=== PATIENT | female | born 1995 | race Caucasian/White ===

== ENCOUNTER 2018-12-14 11:47 | Outpatient (CLI) | payer MEDICAID, SELFPAY | END 2018-12-14 12:07 | PROVIDERS: PCP Family Medicine; Visit Provider Nurse Practitioner Women's Health | DX: R69 Illness, unspecified (principal) | CPT/HCPCS: 36415; 80076; 87522 ==

== ENCOUNTER 2019-02-02 13:05 | Outpatient (REF) | payer MEDICAID, SELFPAY ==
--- NOTE | 2019-02-02 11:30 | PAPFT_PTH ---
PATIENT: Raysa West LOC: [facility] U#:[id number] AGE/SX: 23/F ROOM: RE02/02/[address]: Nell Carrasquillo RN : 1995 BED: DIS: 02/02/2019 SPEC #: [id number] RECD: 02/02/19 13:07 STATUS: ESSIE REBin #: [id number] JEREMIAH: 02/02/19 11:[address]: Nell Carrasquillo DEPT: [facility] Cytology RECD BY: Yesenia Valdez Tissues: 1 - CX/ENDOCX FOR PAP SMEARS Procedures: PAP THIN PREP/UVM Screening Comments: [id number]
[2019-02-02 13:46] LABS: *AMPHETAMINES SCREEN URINE Negative (Negative); *BARBITURATES SCREEN URINE Negative (Negative); *BENZODIAZEPINES SCREEN URINE Negative (Negative); Cannabinoids THC POSITIVE (Negative); Cocaine Screen,Urine Negative (Negative); METHADONE URINE SCREEN POSITIVE (Negative); OPIATES URINE SCREEN Negative (Negative)
[2019-02-02 13:48] LABS: Tricyclic Antidepressants Negative (Negative)
[2019-02-03 15:19] LABS: Chlamydia Result Negative; GC Result Negative; Specimen Description CERVIX
[2019-02-04 23:29] LABS: Buprenorphine Negative; Norbuprenorphine Negative
== END 2019-02-02 13:25 ==
LOC: LBN 13:05
PROVIDERS: Visit Provider Advanced Practice Midwife
DX: Z34.91 Encounter for supervision of normal pregnancy, unspecified, first trimester (principal); Z11.3 Encounter for screening for infections with a predominantly sexual mode of transmission; Z12.4 Encounter for screening for malignant neoplasm of cervix
CPT/HCPCS: 80307; 87491; 87591; 88142; 87086

== ENCOUNTER 2019-03-14 01:14 | Outpatient (CLI) | payer MEDICAID, SELFPAY ==
--- NOTE | 2019-03-14 07:44 | DI.US_ITS ---
EXAM: US OB 2-3 TRIMESTER CLINICAL HISTORY: SURVEY,Z34.90 TECHNIQUE: OB ultrasound was performed according to the usual protocol. FINDINGS: Please refer to the OB ultrasound worksheet for complete results of this examination
== END 2019-03-14 01:34 ==
PROVIDERS: PCP Nurse Practitioner Adult Health; Visit Provider Advanced Practice Midwife
DX: Z34.92 Encounter for supervision of normal pregnancy, unspecified, second trimester (principal)
CPT/HCPCS: 76805

== ENCOUNTER 2019-04-17 14:31 | Outpatient (REF) | payer MEDICAID, SELFPAY ==
[2019-04-17 15:34] LABS: *AMPHETAMINES SCREEN URINE Negative (Negative); *BARBITURATES SCREEN URINE Negative (Negative); *BENZODIAZEPINES SCREEN URINE Negative (Negative); Cannabinoids THC Negative (Negative); Cocaine Screen,Urine Negative (Negative); METHADONE URINE SCREEN POSITIVE (Negative); OPIATES URINE SCREEN Negative (Negative)
[2019-04-17 15:35] LABS: Tricyclic Antidepressants Negative (Negative)
[2019-04-24 11:49] LABS: Buprenorphine Negative; Norbuprenorphine Negative
== END 2019-04-17 14:51 ==
LOC: LBN 14:31
PROVIDERS: PCP Nurse Practitioner Adult Health; Visit Provider Advanced Practice Midwife
DX: Z34.92 Encounter for supervision of normal pregnancy, unspecified, second trimester (principal)
CPT/HCPCS: 80307

== ENCOUNTER 2019-05-15 08:04 | Outpatient (CLI) | payer MEDICAID, SELFPAY ==
[2019-05-15 08:47] LABS: Abs Immature Grans 0.15 k/cumm (0.0-0.09); Absolute Basophil Count 0.03 k/cumm (0.0-0.2); Absolute Eosinophil Count 0.13 k/cumm (0.0-0.7); Absolute Lymphocyte Count 1.46 k/cumm (1.2-3.4); Absolute Monocyte Count 1.34 k/cumm (0.11-0.7); Basophils % 0.2; Eosinophils % 0.9; HGB 12.1 g/dL (12.0-15.5); Immature Grans % 1.1; Lymphocytes % 10.5; Mean Corp. HGB Concentration 33.6 g/dL (32.0-36.0); Mean Corpuscular Hemoglobin 30.6 pg (27.0-33.0); Mean Corpuscular Volume 91.1 fL (80-95); Mean Platelet Volume 10.9 fL (8.0-11.0); Monocytes % 9.6; Neutrophils % 77.7; Platelet Count 261 x1000/uL (130-400); RBC 3.95 m/cumm (4.00-5.20); White Blood Cell Count 13.92 k/cumm (4.4-10.8)
[2019-05-15 08:48] LABS: Absolute Neutrophil Count 10.82 k/cumm (1.2-6.7)
[2019-05-15 08:59] LABS: Glucose,1 Hr (Glucola) 102 mg/dL (80-140)
[2019-05-15 09:35] LABS: TSH (W/Ref FT4) 1.43 uIU/mL (0.36-3.74)
[2019-05-16 10:24] LABS: Rubella IgG Ab (UVM) Positive (See Note); Varicella IgG Antibody Negative (See Note)
[2019-05-16 11:10] LABS: Hepatitis B Surface Ag Negative (Negative)
[2019-05-16 13:15] LABS: Hepatitis C Ab w Rflx HCV PCR Reactive (Negative)
[2019-05-16 13:32] LABS: HIV-1/2 Ag & Ab Screen Negative (Negative)
[2019-05-16 16:04] LABS: Syphilis Total Ab w/Reflex Nonreactive (Nonreactive)
== END 2019-05-15 08:24 ==
PROVIDERS: Advanced Practice Midwife; PCP Nurse Practitioner Adult Health; Visit Provider Advanced Practice Midwife
DX: Z34.90 Encounter for supervision of normal pregnancy, unspecified, unspecified trimester (principal); Z11.4 Encounter for screening for human immunodeficiency virus [HIV]; Z11.59 Encounter for screening for other viral diseases; Z01.84 Encounter for antibody response examination
CPT/HCPCS: 82950; 86787; 86803; 86850; 86900; 86901; 87340; 87389; 84443; 85025; 86762; 86780; 87522

== ENCOUNTER 2019-05-15 10:59 | Outpatient (REF) | payer MEDICAID, SELFPAY ==
[2019-05-15 14:01] LABS: *AMPHETAMINES SCREEN URINE Negative (Negative); *BARBITURATES SCREEN URINE Negative (Negative); *BENZODIAZEPINES SCREEN URINE Negative (Negative); Cannabinoids THC Negative (Negative); Cocaine Screen,Urine Negative (Negative); METHADONE URINE SCREEN POSITIVE (Negative); OPIATES URINE SCREEN Negative (Negative)
[2019-05-15 14:16] LABS: Tricyclic Antidepressants Negative (Negative)
[2019-05-19 16:02] LABS: Buprenorphine Negative; Norbuprenorphine Negative
== END 2019-05-15 11:19 ==
LOC: LBN 10:59
PROVIDERS: PCP Nurse Practitioner Adult Health; Visit Provider Advanced Practice Midwife
DX: Z34.92 Encounter for supervision of normal pregnancy, unspecified, second trimester (principal)
CPT/HCPCS: 80307

== ENCOUNTER 2019-07-03 09:21 | Outpatient (CLI) | payer MEDICAID, SELFPAY ==
[2019-07-03 10:50] LABS: ALT 24 U/L (14-59); AST 18 U/L (15-37); Albumin 2.3 g/dL (3.4-5.0); Alkaline Phosphatase 182 U/L (46-116); Bilirubin, Total 0.2 mg/dL (0.2-1.0); Total Protein 6.2 g/dL (6.4-8.2)
[2019-07-03 11:06] LABS: Bilirubin, Direct 0.09 mg/dL (0.00-0.20)
[2019-07-03 12:41] LABS: *AMPHETAMINES SCREEN URINE Negative (Negative); *BARBITURATES SCREEN URINE Negative (Negative); *BENZODIAZEPINES SCREEN URINE Negative (Negative); Cannabinoids THC Negative (Negative); Cocaine Screen,Urine Negative (Negative); METHADONE URINE SCREEN POSITIVE (Negative); OPIATES URINE SCREEN Negative (Negative)
[2019-07-03 12:43] LABS: Tricyclic Antidepressants Negative (Negative)
[2019-07-06 10:14] LABS: Buprenorphine Negative; Norbuprenorphine Negative
== END 2019-07-03 09:41 ==
PROVIDERS: PCP Nurse Practitioner Adult Health; Visit Provider Advanced Practice Midwife
DX: B19.20 Unspecified viral hepatitis C without hepatic coma (principal); F11.11 Opioid abuse, in remission; Z34.93 Encounter for supervision of normal pregnancy, unspecified, third trimester
CPT/HCPCS: 36415; 80076; 80307

== ENCOUNTER 2019-08-03 13:44 | Outpatient (REF) | payer MEDICAID, SELFPAY ==
[2019-08-03 14:34] LABS: *AMPHETAMINES SCREEN URINE Negative (Negative); *BARBITURATES SCREEN URINE Negative (Negative); *BENZODIAZEPINES SCREEN URINE Negative (Negative); Cannabinoids THC Negative (Negative); Cocaine Screen,Urine Negative (Negative); METHADONE URINE SCREEN POSITIVE (Negative); OPIATES URINE SCREEN Negative (Negative)
[2019-08-03 14:37] LABS: Tricyclic Antidepressants Negative (Negative)
[2019-08-09 10:27] LABS: Buprenorphine Negative; Norbuprenorphine Negative
== END 2019-08-03 14:04 ==
LOC: LBN 13:44
PROVIDERS: PCP Nurse Practitioner Adult Health; Visit Provider Advanced Practice Midwife
DX: Z34.93 Encounter for supervision of normal pregnancy, unspecified, third trimester (principal); Z36.85 Encounter for antenatal screening for Streptococcus B; F11.11 Opioid abuse, in remission
CPT/HCPCS: 80307; 87081

== ENCOUNTER 2019-08-10 09:55 | Outpatient (REF) | payer MEDICAID, SELFPAY ==
[2019-08-10 10:52] LABS: *AMPHETAMINES SCREEN URINE Negative (Negative); *BARBITURATES SCREEN URINE Negative (Negative); *BENZODIAZEPINES SCREEN URINE Negative (Negative); Cannabinoids THC Negative (Negative); Cocaine Screen,Urine Negative (Negative); METHADONE URINE SCREEN POSITIVE (Negative); OPIATES URINE SCREEN Negative (Negative)
[2019-08-10 11:24] LABS: Tricyclic Antidepressants Negative (Negative)
== END 2019-08-10 10:15 ==
LOC: LBN 09:55
PROVIDERS: PCP Nurse Practitioner Adult Health; Visit Provider Advanced Practice Midwife
DX: F11.11 Opioid abuse, in remission (principal)
CPT/HCPCS: 80307

== ENCOUNTER 2019-08-11 13:35 | Inpatient (IN) | payer MEDICAID, SELFPAY ==
--- NOTE | 2019-08-11 17:37 | W.PM.PROGNOT ---
Date of Service Date of service: 08/11/19 Time of Service: 17:37 Assessment and Plan Assessment and plan (1) : Status: Acute Assessment and plan: The patient is a 24-year-old 3 para 2 who presented to OB with regular uterine contractions. She denies any leakage of fluid, bleeding, reports the baby's been active for her. She has a history of a precipitous delivery when she was 13 years old of a term infant. She then had a section done for a herpes outbreak. She was carefully examined by the real estate services coordinator on-call and no evidence of an outbreak was visible. The patient does have hepatitis C and therefore we want to minimize obstetric interventions. She currently is a category 1 strip with a baseline 120s good accelerations up to 140s 150s with mild contractions every few minutes. The patient will be monitored for a few hours to see if she is making cervical change. If she does not make cervical change and if she is not active labor she will then be sent home with the instructions to call immediately if she has increasing and more intense contractions. Also she ruptured membranes, has any bleeding, leakage of fluid or any other problems. I will also check an HIV, will check a rapid HIV because if she is positive there is increased risk of transmission of the hepatitis C to the baby. I told her in that case I would recommend a section. If the HIV test is negative, and if she is not active labor she will then be discharged home with careful instructions and follow-up. I did explain to her the risk of vaginal after including risk of rupture of the uterus and , impairment, maternal and impairment as well. If there is rupture of the uterus most times the uterine scar can be repaired but there is always a chance that hysterectomy would be required. The patient has been extensively counseled throughout the and I feel she is a good understanding of the risk and goals of the vaginal after .
[2019-08-11 18:08] LABS: HIV 1/2 Ab Rapid Negative (Negative)
[2019-08-11] MEDS: Normal Saline Flush 10 ML SYR IVP (19:15)
[2019-08-11 19:35] LABS: HCT 36.4 % (36.0-46.0); HGB 12.6 g/dL (12.0-15.5); Mean Corp. HGB Concentration 34.6 g/dL (32.0-36.0); Mean Corpuscular Hemoglobin 31.8 pg (27.0-33.0); Mean Corpuscular Volume 91.9 fL (80-95); Mean Platelet Volume 10.9 fL (8.0-11.0); Platelet Count 337 x1000/uL (130-400); RBC 3.96 m/cumm (4.00-5.20); RBC Distribution Width 13.3 % (11.7-14.6)
[2019-08-12] MEDS: Acetaminophen 325 MG TAB 650 MG PO ×2 (01:49→07:39)
[2019-08-12] MEDS: Ibuprofen 600 MG TAB PO ×2 (01:49→07:39)
[2019-08-12 06:56] LABS: HCT 32.7 % (36.0-46.0); Mean Corp. HGB Concentration 33.6 g/dL (32.0-36.0); Mean Corpuscular Volume 92.1 fL (80-95); Mean Platelet Volume 10.8 fL (8.0-11.0); Platelet Count 291 x1000/uL (130-400); RBC 3.55 m/cumm (4.00-5.20); RBC Distribution Width 13.2 % (11.7-14.6)
[2019-08-12] MEDS: Hamamelis Leaf/Glycerin 100 EACH BOX PR (07:40)
[2019-08-12] MEDS: Methadone Liquid 10 MG/ML 110 MG PO (07:44)
[2019-08-13] MEDS: Methadone Liquid 10 MG/ML 110 MG PO (08:18)
[2019-08-13] MEDS: Varicella Virus Vaccine (Live) 1 ML IM (18:38)
[2019-08-14 10:49] LABS: HIV-1/2 Ag & Ab Screen Negative (Negative)
== END 2019-08-13 18:30 | disposition home or self-care (01) | DRG 806 ==
PROVIDERS: Admitting Provider Advanced Practice Midwife; PCP Nurse Practitioner Adult Health; Visit Provider Obstetrics & Gynecology
DX: O70.0 First degree perineal laceration during delivery (principal); O98.42 Viral hepatitis complicating childbirth; Z37.0 Single live birth; O98.32 Other infections with a predominantly sexual mode of transmission complicating childbirth; O99.324 Drug use complicating childbirth; F11.20 Opioid dependence, uncomplicated; O48.0 Post-term pregnancy; O34.211 Maternal care for low transverse scar from previous cesarean delivery; Z3A.40 40 weeks gestation of pregnancy; B19.20 Unspecified viral hepatitis C without hepatic coma; A60.09 Herpesviral infection of other urogenital tract; Z28.3 Underimmunization status; Z11.4 Encounter for screening for human immunodeficiency virus [HIV]
CPT/HCPCS: 36415; 85027; 86850; 86900; 86901; 87389; 90471; 99231

== ENCOUNTER 2021-09-02 16:02 | Outpatient (CLI) | payer MEDICAID, SELFPAY ==
[2021-09-02 11:59] LABS: Kit/Specimen SENT
[2021-09-02 12:03] LABS: Absolute Basophil Count 0.04 10^3/uL (0.0-0.2); Absolute Eosinophil Count 0.16 10^3/uL (0.0-0.7); Absolute Monocyte Count 0.99 10^3/uL (0.1-0.8); Absolute Neutrophil Count 11.43 10^3/uL (1.2-6.7); Basophils % 0.3; Eosinophils % 1.1; HCT 33.5 % (36.0-46.0); HGB 11.1 g/dL (11.2-15.7); Immature Grans % 0.7; Lymphocytes % 12.9; MCH 30.4 pg (27.0-33.0); MCHC 33.1 % (32.0-36.0); MCV 91.8 fL (80-95); Monocytes % 6.8; Neutrophils % 78.2; Nucleated RBC 0 %; Platelet Count 249 10^3/uL (130-400); RBC 3.65 10^6/uL (3.93-5.22); RDW 12.6 % (11.7-14.6); WBC 14.61 10^3/uL (4.4-10.8)
[2021-09-02 12:06] LABS: Absolute Lymphocyte Count 1.88 10^3/uL (1.2-3.4)
[2021-09-02 13:00] LABS: ALT 33 U/L (14-59); AST 22 U/L (15-37); Albumin 2.9 g/dL (3.4-5.0); Alkaline Phosphatase 73 U/L (46-116); Bilirubin, Direct 0.1 mg/dL (0.0-0.2); Bilirubin, Total 0.3 mg/dL (0.2-1.0); Total Protein 6.4 g/dL (6.4-8.2)
[2021-09-02 13:08] LABS: TSH (W/Ref FT4) 0.86 uIU/mL (0.36-3.74)
[2021-09-03 10:16] LABS: Hepatitis B Surface Ag Negative (Negative)
[2021-09-03 11:15] LABS: HIV-1/2 Ag & Ab Screen Negative (Negative)
[2021-09-03 11:18] LABS: Varicella IgG Antibody Negative (See Note)
[2021-09-03 11:20] LABS: Rubella IgG Ab (UVM) Positive (See Note)
[2021-09-03 12:13] LABS: Hepatitis C Ab w Rflx HCV PCR Reactive (Negative)
[2021-09-04 13:55] LABS: HCV RNA Detection Quantitative 898000 IU/mL (Undetected); HCV RNA Qualitative Detected (Undetected)
[2021-09-04 19:04] LABS: Syphilis IgG w/Reflex Nonreactive (Nonreactive)
[2021-09-10 01:51] LABS: Result Summary NEGATIVE; Specimen WB Whole Blood
== END 2021-09-02 16:03 | disposition home or self-care (01) ==
LOC: LBO 16:03
PROVIDERS: PCP Nurse Practitioner Adult Health; Visit Provider Advanced Practice Midwife
DX: Z34.82 Encounter for supervision of other normal pregnancy, second trimester; B19.20 Unspecified viral hepatitis C without hepatic coma
CPT/HCPCS: 80076; 86787; 86803; 86850; 86900; 86901; 87340; 87389; 87522; 81220; 84443; 85025; 86762; 86780

== ENCOUNTER 2021-09-02 20:51 | Outpatient (REF) | payer MEDICAID, SELFPAY ==
[2021-09-02 13:36] LABS: *AMPHETAMINES SCREEN URINE Negative (Negative); *BARBITURATES SCREEN URINE Negative (Negative); *BENZODIAZEPINES SCREEN URINE Negative (Negative); Cannabinoids THC Positive (Negative); Cocaine Screen,Urine Negative (Negative); METHADONE URINE SCREEN Positive (Negative); OPIATES URINE SCREEN Negative (Negative)
[2021-09-02 13:44] LABS: Tricyclic Antidepressants Negative (Negative)
[2021-09-09 13:48] LABS: Buprenorphine Negative ng/mL (Cutoff: 5.0); Norbuprenorphine Negative ng/mL (Cutoff: 2.5)
== END 2021-09-02 20:52 | disposition home or self-care (01) ==
LOC: LBN 20:51
PROVIDERS: PCP Nurse Practitioner Adult Health; Visit Provider Advanced Practice Midwife
DX: Z34.91 Encounter for supervision of normal pregnancy, unspecified, first trimester
CPT/HCPCS: 80307; 87086

== ENCOUNTER 2021-09-12 02:04 | Outpatient (CLI) | payer MEDICAID, SELFPAY ==
--- NOTE | 2021-09-12 06:30 | DI.US_ITS ---
Exam(s) US OB 2-3 TRIMESTER EXAM: US OB 2-3 TRIMESTER CLINICAL HISTORY: anatomy scan,z34.90. TECHNIQUE: Transabdominal obstetrical ultrasound performed. COMPARISON: US US OB 2-3 TRIMESTER from 03/14/2019 FINDINGS: Transabdominal obstetrical ultrasound performed. FINDINGS: Number of fetuses: One. position: Breech heart rate: 132 bpm. Placental location: There is a grade 2 posterior placenta. No evidence of previa. Amniotic fluid index: Amount of fluid is within normal limits. ANATOMICAL SURVEY: Within normal limits. BIOMETRIC DATA: BPD: 5.2cm consistent with 21 weeks 5 days HC: 20cm consistent with 22 weeks 1 day AC: 18.4cm consistent with 23 weeks 1 day FL: 3.6cm consistent with 21 weeks 3 days Cisterna Magna: 4 mm Cerebellum: 2.3 cm EFW: 498 grms 27% Composite Age: 22 weeks 1 day EDC by US: 01/15/2022 IMPRESSION: 1. Single live intrauterine gestation as above. 2. Normal anatomic survey. DATA REPOSITORY:
== END 2021-09-12 02:24 ==
PROVIDERS: Visit Provider Advanced Practice Midwife
DX: Z34.92 Encounter for supervision of normal pregnancy, unspecified, second trimester (principal)
CPT/HCPCS: 76805

== ENCOUNTER 2021-10-08 16:18 | Outpatient (REF) | payer MEDICAID, SELFPAY ==
[2021-10-08 15:14] LABS: *AMPHETAMINES SCREEN URINE Negative (Negative); *BARBITURATES SCREEN URINE Negative (Negative); *BENZODIAZEPINES SCREEN URINE Negative (Negative); Cannabinoids THC Positive (Negative); Cocaine Screen,Urine Negative (Negative); METHADONE URINE SCREEN Positive (Negative); OPIATES URINE SCREEN Negative (Negative)
[2021-10-08 15:17] LABS: Tricyclic Antidepressants Negative (Negative)
[2021-10-14 12:52] LABS: Buprenorphine Negative ng/mL (Cutoff: 5.0)
== END 2021-10-08 16:19 | disposition home or self-care (01) ==
LOC: LBN 16:18
PROVIDERS: Visit Provider Advanced Practice Midwife
DX: Z34.91 Encounter for supervision of normal pregnancy, unspecified, first trimester (principal); Z3A.00 Weeks of gestation of pregnancy not specified
CPT/HCPCS: 80307; 87086

== ENCOUNTER 2021-10-22 01:34 | Outpatient (CLI) | payer MEDICAID, SELFPAY | END 2021-10-22 01:35 | disposition home or self-care (01) | LOC: LBO 01:34 | PROVIDERS: Visit Provider Advanced Practice Midwife ==

== ENCOUNTER 2021-10-28 01:35 | Outpatient (CLI) | payer MEDICAID, SELFPAY ==
[2021-10-28 11:54] LABS: HCT 33.1 % (36.0-46.0); MCH 30.4 pg (27.0-33.0); MCHC 33.2 % (32.0-36.0); MCV 91 fL (80-95); MPV 10.9 fL (8.0-11.0); Platelet Count 227 10^3/uL (130-400); RBC 3.62 10^6/uL (3.93-5.22); RDW 12.7 % (11.7-14.6); RDW-SD 42.5 fL; WBC 14.99 10^3/uL (4.4-10.8)
[2021-10-28 12:13] LABS: Glucose,1 Hr (Glucola) 132 mg/dL (80-140)
== END 2021-10-28 01:36 | disposition home or self-care (01) ==
LOC: LBO 01:35
PROVIDERS: Advanced Practice Midwife; Visit Provider Advanced Practice Midwife
DX: Z34.93 Encounter for supervision of normal pregnancy, unspecified, third trimester (principal); Z3A.29 29 weeks gestation of pregnancy
CPT/HCPCS: 36415; 82950; 85027

== ENCOUNTER 2021-12-19 10:44 | Outpatient (REF) | payer MEDICAID, SELFPAY ==
[2021-12-19 12:11] LABS: *AMPHETAMINES SCREEN URINE Negative (Negative); *BARBITURATES SCREEN URINE Negative (Negative); *BENZODIAZEPINES SCREEN URINE Negative (Negative); Cannabinoids THC Positive (Negative); Cocaine Screen,Urine Negative (Negative); METHADONE URINE SCREEN Positive (Negative); OPIATES URINE SCREEN Negative (Negative); Tricyclic Antidepressants Negative (Negative)
[2021-12-31 10:56] LABS: Buprenorphine Negative ng/mL (Cutoff: 5.0)
== END 2021-12-19 10:45 | disposition home or self-care (01) ==
LOC: LBN 10:44
PROVIDERS: Visit Provider Advanced Practice Midwife
DX: Z34.93 Encounter for supervision of normal pregnancy, unspecified, third trimester (principal); Z36.85 Encounter for antenatal screening for Streptococcus B; Z88.0 Allergy status to penicillin; Z3A.36 36 weeks gestation of pregnancy
CPT/HCPCS: 80307; 87081

== ENCOUNTER 2022-01-13 02:21 | Inpatient (IN) | payer MEDICAID, SELFPAY ==
[2022-01-13] VITALS (10 sets, daily range): BP systolic 101–129; BP diastolic 53–74; PULSE 67–86; RESP 12–18; TEMP 36.8–37.4; O2SAT 98
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
[2022-01-13 02:53] LABS: Source Nasal/Nares
[2022-01-13 03:09] LABS: HGB 12.7 g/dL (11.2-15.7); MCH 30.8 pg (27.0-33.0); MCHC 34.3 % (32.0-36.0); MCV 90 fL (80-95); MPV 12.1 fL (8.0-11.0); Platelet Count 201 10^3/uL (130-400); RBC 4.12 10^6/uL (3.93-5.22); RDW 13.3 % (11.7-14.6); RDW-SD 43.8 fL; WBC 13.16 10^3/uL (4.4-10.8)
--- NOTE | 2022-01-13 03:33 | W.OBDELIVERY ---
Date of service: 01/13/22 Time of Service: 03:34 OB Labor/ Delivery Information Baby A Delivery Delivery Method: Spontaneaous Presentation: Vertex Estimated Blood Loss: 350 Delivery Outcome: Liveborn Infant Transferred: Remains with Mother Note: Mylas labor progressed rapidly. She used nitrous oxide for pain relief. FHTs 130s during first stage of labor. FHTs 120s in second stage. AROM performed for a large amount of clear fluid at 9.5 cms. Progressed to full dilation and began pushing. Second stage huddle was done. Spontaneous delivery of male infant delivered in IRVIN position. A nuchal cord was noted which was tight and the baby was delivered through the cord. Baby was placed on mother's abdomen and dried and stimulated. Spontaneous cry. Cord was clamped and cut by the baby's father. The placenta delivered spontaneously and appears to by intact with a three vessel cord. The IV dislodged with pushing and Pitocin 10 was administered after delivery of the placenta. The perineum was inspected and a first degree perineal laceration was repaired . The baby is bottlefeeding. After delivery, Mother and baby, the baby's sister and father of the baby were stable and bonding well in the delivery room and there were no complications. Labor/Delivery Information Group Beta Strep: Negative Rubella Status: Immune Blood Type: O+ Varicella Immunity: Nonimmune Stages of Labor Onset of Labor Date: 01/13/22 Onset of Labor Time: 01:30 ROM Baby A: 01/13/22 ROM Baby A: 02:56 Interventions Repair of Laceration Type: Perineal, Laceration Extension: First Degree. Sponge Count Correct: No Sponges Placed in Vagina, Sharp Count Correct: Yes. Laceration Repair Note: repair under local anesthetic which patient tolerated well.
[2022-01-13 03:44] LABS: COVID-19 PCR Negative (Negative)
--- NOTE | 2022-01-13 03:44 | W.OBNST ---
Date of service: 01/13/22 Time of Service: 03:30 NST Evaluation Gestational Age Gestational Age in Weeks and Days: 40 Weeks and 0Days Note NST Note Note: Raysa reported contractions every 8 minutes at home. She was instructed to come in to the center. An NST was performed. Her contractions became stronger and more regular upon arrival and she is admitte din active labor. NST Reviewed and Verified by: Abby Fay
[2022-01-13] MEDS: Ibuprofen 600 MG TAB PO ×2 (04:24→18:08)
[2022-01-13] MEDS: Acetaminophen 325 MG TAB 650 MG PO ×2 (04:25→18:08)
[2022-01-14 09:00] VITALS: BP 121/79; PULSE 74; RESP 14; TEMP 37
[2022-01-14] MEDS: Acetaminophen 325 MG TAB 650 MG PO ×3 (09:20→20:55)
[2022-01-14] MEDS: Ibuprofen 600 MG TAB PO ×3 (09:20→20:55)
[2022-01-14] MEDS: Albuterol HFA 8 GM 60 PUFF INH IH ×4 (09:34→22:01)
--- NOTE | 2022-01-14 11:10 | OBPPV_ITS ---
Date of service: 01/14/22 Time of Service: 11:10 Assessment and Plan Assessment and plan (1) , delivered, current hospitalization: Status: Acute Assessment and plan: A: nml PPD#1 Formula feeding by choice Satisfied with experience P: 5 day ARSENIO ESC observation in progress Plan Varicella vaccine #1 prior to discharge Pt plans for TL at 6-8 wks PP Will consider discharge to boarder status tomorrow Nbn circumcision is planned F/up at 2 & 6 wks Will refer pt to PCP or [facility] for treatment of Hep C (2) Methadone maintenance therapy patient: Status: Acute Assessment and plan: Day 2 of 5 day ARSENIO ESC observation in progress Subjective Subjective Patient comments: No complaints, Pain well controlled, Tolerating diet and Flatus present Patient's Mood: happy baby status: Doing well, Bottle feeding well, Rooming in and Strong Bonding Observed feeding status: Exclusively formula feeding Exam Physical Exam Vital signs: Temp Pulse Resp BP Pulse Ox 98.6 F 74 14 121/79 98 01/14/22 09:00 01/14/22 09:00 01/14/22 09:00 01/14/22 09:00 01/13/22 15:45 Vital Signs Reviewed: Yes Constitutional Constitutional: no acute distress, average body habitus and cooperative HEENT Exam HEENT Exam: Normal Neck Exam Neck Exam: Normal Breast Exam Bilateral: Breast Exam: Normal and Soft Nipple Exam: Normal and Uninjured Respiratory Exam Respiratory Exam: Normal Cardiovascular Exam Cardiovascular Exam: Normal Abdominal Exam Abdomen: Other (soft, nontender) Fundal Exam Fundus: Below Umbilicus and Firm Rectal Exam Rectal Exam: Normal Exam Perineum: Normal and Repair Intact Extremities Exam Extremity Exam: Normal, Full ROM and Warm to Touch Back/Spine/Pelvis Exam Back Exam: Normal Skin Exam Skin Exam: Normal Neurological Exam Neurological Exam: Normal Psychiatric Exam Psychiatric Exam: Normal Results Hemoglobin/Hematocrit: Hgb 12.7 g/dL (11.2-15.7) 01/13/22 02:41 Hct 37.0 % (36.0-46.0) 01/13/22 02:41
[2022-01-14 21:02] VITALS: BP 110/64; PULSE 58; RESP 18; TEMP 37.3; O2SAT 99
[2022-01-15 00:19] VITALS: TEMP 37
[2022-01-15 07:18] VITALS: BP 103/60; PULSE 75; RESP 16; TEMP 37.2; O2SAT 97
[2022-01-15] MEDS: Ibuprofen 600 MG TAB PO ×2 (07:24→18:09)
[2022-01-15] MEDS: Acetaminophen 325 MG TAB 650 MG PO ×2 (07:24→18:09)
[2022-01-15] MEDS: Albuterol HFA 8 GM 60 PUFF INH IH ×2 (07:24→18:09)
[2022-01-15] MEDS: Docusate Sodium 100 MG CAP PO (09:43)
[2022-01-15 22:30] VITALS: BP 120/85; PULSE 49; RESP 17; TEMP 36.5; O2SAT 98
[2022-01-16] MEDS: Acetaminophen 325 MG TAB 650 MG PO (08:10)
[2022-01-16] MEDS: Ibuprofen 600 MG TAB PO (08:10)
[2022-01-16] MEDS: Albuterol HFA 8 GM 60 PUFF INH IH (08:11)
--- NOTE | 2022-01-16 08:15 | OBPPV_ITS ---
Date of service: 01/15/22 Time of Service: 09:15 Assessment and Plan Assessment and plan (1) , delivered, current hospitalization: Status: Acute Assessment and plan: A: nml PPD#2 Baby scoring low in ESC P: 5 day ARSENIO ESC observation in progress Pt plans for TL at 6-8 wks PP [facility] d/t need for inhaler Will Rx inhaler from community [facility] to pt will have for own prn use (2) Methadone maintenance therapy patient: Status: Acute Assessment and plan: Day 3 of 5 day ARSENIO ESC observation in progress Subjective Subjective Patient comments: No complaints, Pain well controlled and Tolerating diet Patient's Mood: happy, tired baby status: Doing well, Bottle feeding well, Rooming in and Strong Bonding Observed feeding status: Exclusively formula feeding Exam Physical Exam Vital signs: Temp Pulse Resp BP Pulse Ox 97.7 F 49 L 17 120/85 98 01/15/22 22:30 01/15/22 22:30 01/15/22 22:30 01/15/22 22:30 01/15/22 22:30 Vital Signs Reviewed: Yes Constitutional Constitutional: no acute distress, average body habitus and cooperative HEENT Exam HEENT Exam: Normal Neck Exam Neck Exam: Normal Breast Exam Bilateral: Breast Exam: Normal and Soft Respiratory Exam Respiratory Exam: Normal Cardiovascular Exam Cardiovascular Exam: Normal Abdominal Exam Abdomen: Other (soft, nontender) Fundal Exam Fundus: Below Umbilicus and Firm Rectal Exam Rectal Exam: Normal Exam Perineum: Normal and Repair Intact Extremities Exam Extremity Exam: Normal, Full ROM and Warm to Touch Back/Spine/Pelvis Exam Back Exam: Normal Skin Exam Skin Exam: Normal Neurological Exam Neurological Exam: Normal Psychiatric Exam Psychiatric Exam: Normal
--- NOTE | 2022-01-16 08:22 | OBPPV_ITS ---
Date of service: 01/16/22 Time of Service: : Assessment and Plan Assessment and plan (1) , delivered, current hospitalization: Status: Acute Assessment and plan: A: nml PPD#3 Baby scoring low in ESC Caring for self and infant competently and independently P: 5 day ARSENIO ESC observation in progress Pt plans for TL at 6-8 wks PP Discharge to boarder status today Declines Varicella vaccination F/up at 2 & 6 wks Written instructions reviewed and given to pt (2) Methadone maintenance therapy patient: Status: Acute Assessment and plan: Day 4 of 5 day ARSENIO ESC observation in progress Subjective Subjective Patient comments: No complaints, Pain well controlled, Tolerating diet and Flatus present Patient's Mood: tired [place] baby status: Doing well, Bottle feeding well, Rooming in and Strong Bonding Observed feeding status: Exclusively formula feeding Narrative: Declines Varicella vaccination Exam Physical Exam Vital signs: Temp Pulse Resp BP Pulse Ox 97.7 F 49 L 17 120/85 98 01/15/22 22:30 01/15/22 22:30 01/15/22 22:30 01/15/22 22:30 01/15/22 22:30 Vital Signs Reviewed: Yes Constitutional Constitutional: no acute distress, average body habitus and cooperative HEENT Exam HEENT Exam: Normal Neck Exam Neck Exam: Normal Breast Exam Bilateral: Breast Exam: Normal and Soft Respiratory Exam Respiratory Exam: Normal Cardiovascular Exam Cardiovascular Exam: Normal Abdominal Exam Abdomen: Other (soft, nontender) Fundal Exam Fundus: Below Umbilicus and Firm Rectal Exam Rectal Exam: Normal Exam Perineum: Normal and Repair Intact Extremities Exam Extremity Exam: Normal, Full ROM and Warm to Touch Back/Spine/Pelvis Exam Back Exam: Normal Skin Exam Skin Exam: Normal Neurological Exam Neurological Exam: Normal Psychiatric Exam Psychiatric Exam: Normal
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
[2022-01-16 08:30] VITALS: BP 130/66; PULSE 54; RESP 14; TEMP 37.2
== END 2022-01-16 10:45 | disposition home or self-care (01) | DRG 806 ==
PROVIDERS: Admitting Provider Advanced Practice Midwife; Visit Provider Advanced Practice Midwife
DX: O34.219 Maternal care for unspecified type scar from previous cesarean delivery (principal); F11.20 Opioid dependence, uncomplicated; Z37.0 Single live birth; O98.32 Other infections with a predominantly sexual mode of transmission complicating childbirth; O99.324 Drug use complicating childbirth; O98.42 Viral hepatitis complicating childbirth; Z3A.40 40 weeks gestation of pregnancy; N85.8 Other specified noninflammatory disorders of uterus; F12.90 Cannabis use, unspecified, uncomplicated; O99.344 Other mental disorders complicating childbirth; F41.8 Other specified anxiety disorders; B18.2 Chronic viral hepatitis C; O99.52 Diseases of the respiratory system complicating childbirth; O69.1XX0 Labor and delivery complicated by cord around neck, with compression, not applicable or unspecified
CPT/HCPCS: 36415; 85027; 86850; 86900; 86901; 87635

== ENCOUNTER 2022-03-20 10:47 | Outpatient (REF) | payer MEDICAID, SELFPAY ==
--- NOTE | 2022-03-20 10:00 | PAPFT_PTH ---
PATIENT: Raysa West LOC: [facility] U#:[id number] AGE/SX: 26/F ROOM: RE03/20/[address]: Birgit Marroquin CNM : 1995 BED: DIS: 03/20/2022 SPEC #: [id number] RECD: 03/20/22 12:55 STATUS: ESSIE REQ #: [id number] JEREMIAH: 03/20/22 10:[address]: Birgit Marroquin [facility]PT[facility] Cytology RECD BY: Yesenia Valdez ENTERED: 03/20/22 12:55 SP TYPE: PAPFT OTHR DR: Unknown,Unknown Tissues: 1 - CX/ENDOCX FOR PAP SMEARS Procedures: PAP THIN PREP/[facility] Screening Comments: [id number]
== END 2022-03-20 10:48 | disposition home or self-care (01) ==
LOC: LBN 10:47
PROVIDERS: Visit Provider Advanced Practice Midwife
DX: Z12.4 Encounter for screening for malignant neoplasm of cervix (principal)
CPT/HCPCS: 88142